=== PATIENT | male | born 1995 | race African-American/Black ===

== ENCOUNTER 2020-04-26 20:48 | Emergency (ER) | payer OTHER ==
[~2020-04-26] VITALS: Ht 177.8 cm; Wt 86.2 kg
--- NOTE | 2020-04-26 20:50 | NUR ---
ED Nurse Note: Patient BIBA 826 from with c/o right leg pain. Patient was running and catching up a bus when the patient experienced pain. Pt has hx of sx on the affected leg january of 2020. Pt stated he cant bear weight on affected leg. JYOTI seen and assessed pt.
[2020-04-26] MEDS ORDERED: Acetaminophen 500mg (ES) tab ORAL ONE ×2 (20:52→21:00)
--- NOTE | 2020-04-26 20:52 | NUR ---
ED Nurse Note: PT taught by technical operations vice president to use crutches
[2020-04-26] MEDS ORDERED: TYLENOL325 MG ORAL (20:56)
--- NOTE | 2020-04-26 20:56 | Emergency Room Report ---
History of Present Illness General Chief Complaint: Pain Source: Patient Present Illness HPI 24-year-old male history of ORIF in January 2020 right quintero, presents with increased sharp pain patient had to run after a bus, patient is currently endorsing right quintero pain aggravated with movement alleviated rest severity is mild intermittent no fevers no chills patient is currently undergoing antibiotic therapy for her wounds on her right quintero Allergies: Coded Allergies: No Known Allergies (Unverified , 04/26/20) COVID-19 Screening Contact w/high risk pt: No Experienced COVID-19 symptoms?: No COVID-19 Testing performed SIGNAL TECHNICIAN: No Patient History Past Medical History: see triage record Social History: Reports: smoking Reviewed Nursing Documentation: PMH: Agreed; PSxH: Agreed Review of Systems All Other Systems: negative except mentioned in HPI Physical Exam Vital Signs Date Time Temp Pulse Resp B/P (MAP) Pulse Ox O2 Delivery O2 Flow Rate FiO2 04/26/20 20:40 98.4 76 20 134/76 (95) 98 Room Air General Appearance: well appearing, no apparent distress Head: normocephalic, atraumatic ENT: hearing grossly normal, normal voice Neck: full range of motion, supple Respiratory: no respiratory distress, speaking full sentences Musculoskeletal: other - Right lower extremity: 2+ PT DP fires EHL, right quintero shows granulated wound clean dry intact no pus no drainage no erythema Neurologic: alert, normal gait Psychiatric: mood/affect normal Skin: no rash Medical Decision Making Diagnostic Impression: Primary Impression: Leg pain, anterior Qualified Codes: M79.604 - Pain in right leg ER Course 24-year-old male presents with right leg pain, considered osteomyelitis, considered cellulitis, most likely strain due to recent procedure patient will be provided crutches no evidence of fracture dislocation Patient given Tylenol 1 g Disposition home with return precautions follow-up with PCP Last Vital Signs Date Time Temp Pulse Resp B/P (MAP) Pulse Ox O2 Delivery O2 Flow Rate FiO2 04/26/20 20:40 98.4 76 20 134/76 (95) 98 Room Air Disposition: HOME, SELF-CARE Condition: Stable Scripts Acetaminophen (Tylenol) 325 Mg Tablet 650 MG ORAL Q6H PRN for Prn Pain/Headache/Temp > 101, #30 TAB 0 Refills Prov: Laci Cha MD 04/26/20 Referrals: [facility] Patient Instructions: Quintero Splints, [id number] Additional Instructions: The patient was provided with discharge instructions, notified to follow-up with a primary care doctor and or specialist in the next 24-48 hours, and to return to the ED if they have worsening of their symptoms. Please note that this report is being documented using DRAGON technology. This can lead to erroneous entry secondary to incorrect interpretation by the dictating instrument. Laci Cha MD Apr 26, 2020 20:56
--- NOTE | 2020-04-26 20:59 | NUR ---
ER DISCHARGE NOTE: Patient is cleared to be discharged per ERMD, pt is aox4, on room air, with stable vital signs. pt was given dc and prescription instructions, pt was able to verbalize understanding, pt id band removed. pt is able to ambulate with crutches. pt took all belongings.
[2020-04-26 21:01] VITALS: BP 134/76
== END 2020-04-26 21:03 | disposition home or self-care (01) ==
LOC: EDBD 20:48 → EMR 21:02
DX: M79.661 Pain in right lower leg (principal)
CPT/HCPCS: 99282